=== PATIENT | male | born 1995 | race Caucasian/White ===

== ENCOUNTER 2024-11-03 16:43 | Emergency (ER) | payer BC, SELFPAY ==
[2024-11-03 16:52] VITALS: BP 119/85; PULSE 87; TEMP 36.8; O2SAT 100; BMI 22.5
--- NOTE | 2024-11-03 17:11 | XR_ITS ---
[facility] [id number] Patient Name: JAEL URIBE MRN: [id number] date: 1995 Sex: M Assigned Patient Location: ER Current Patient Location: Accession/Order Number: [id number] Exam Date: 11/03/2024 17:35 Report Date: 11/03/2024 18:49 At the request of: PATRICIA ROSARIO Procedure: XR abdomen min 2V EXAM: XR abdomen min 2V HISTORY: constipation COMPARISON: None. TECHNIQUE: 2 views of the abdomen FINDINGS: Nonobstructive bowel pattern is seen. No air-filled distended loops of bowel is seen. Large volume of stool is seen throughout colon. No obvious pathologic calcification is seen. XR/XR abdomen min 2V IMPRESSION: Large volume of stool seen in the colon. Electronically authenticated by: FUENTES SHIPMAN Date: 11/03/2024 18:49
--- NOTE | 2024-11-03 17:11 | ED.ABDPAIN1 ---
HPI - Abdominal Pain General Chief Complaint: Abdominal Pain Stated Complaint: CONSTIPATION, RECENTLY [place] OF COUNTRY Time Seen by Provider: 11/03/24 17:06 Mode of arrival: walk-in History of Present Illness HPI narrative: 28 year old male presents to the ED for constipation. Onset was over one week ago. States he had diarrhea at the end of September, [place]. He took Pepto bismol for the issue. States he returned home 10/20/24. He has had one normal BM since returning home. Denies fever, chills, N/V. Reports abd pressure today. He has taken 3 doses of miralax and increased the fluid, fruit in his diet without relief. Related Data Allergies Allergy/AdvReac Type Severity Reaction Status Date / Time Sulfa (Sulfonamide AdvReac Severe Unknown Verified 11/03/24 16:52 Antibiotics) Review of Systems ROS Constitutional Denies: fever or chills Ears, nose, mouth, and throat Denies: throat pain or neck pain Cardiovascular Denies: chest pain Respiratory Denies: shortness of breath Gastrointestinal Reports: abdominal pain and constipation; Denies: nausea, vomiting or diarrhea Genitourinary Denies: painful urination, urinary frequency or blood in urine Musculoskeletal Denies: back pain PFSH PFSH Social History Little interest or pleasure in doing things: not at all Feeling down, depressed, or hopeless: not at all Exam Constitutional Vital Signs, click to edit/add: Last Vital Signs Temp 98.2 F 11/03/24 16:52 Pulse 87 11/03/24 16:52 Resp 18 11/03/24 16:52 BP 119/85 11/03/24 16:52 Pulse Ox 100 11/03/24 16:52 Common normals: no apparent distress and oriented x3 General appearance: cooperative Eye Common normals: conjunctivae normal and no scleral icterus Neck & C-Spine Common normals: supple Respiratory Common normals: normal respiratory effort Effort & inspection: able to speak in complete sentences and symmetric chest movement Cardio Common normals: regular rate and regular rhythm GI Common normals: Normal to inspection, nondistended, normoactive bowel sounds present, soft to palpation and non-tender Neuro Common normals: oriented x3 and moves all extremities Sensorium/orientation: awake and alert Speech: speech normal Gait (neuro): normal gait Course Vital Signs Vital signs: Vital Signs Temperature 98.2 F 11/03/24 16:52 Pulse Rate 87 11/03/24 16:52 Respiratory Rate 18 11/03/24 16:52 Blood Pressure 119/85 11/03/24 16:52 Pulse Oximetry 100 11/03/24 16:52 Temperature 98.2 F 11/03/24 16:52 Pulse Rate 87 11/03/24 16:52 Respiratory Rate 18 11/03/24 16:52 Blood Pressure 119/85 11/03/24 16:52 Pulse Oximetry 100 11/03/24 16:52 MDM - Abdominal Pain MDM Narrative Medical decision making narrative: X-ray was reviewed by the attending physician and showed constipation with no evidence of obstruction. Findings were discussed with the patient. He was sent home with a bottle of magnesium citrate. Follow up with pcp for a recheck, further evaluation and treatment. Differential Diagnosis Differential diagnosis: Likely abdominal pain, constipation and small bowel obstruction Medical Records Attestation: I reviewed the patient's medical records. Imaging Data XR: Attestation: I have reviewed the pertinent imaging results. Discharge Plan Discharge Chief Complaint: Abdominal Pain Clinical Impression: Constipation Patient Disposition: Home, Self-Care Time of Disposition Decision: 17:52 Condition: Good Mode of Transportation: Private Vehicle Print Language: Guatemalan Instructions: Constipation (ED) Referrals: Felix Morejon MD [Primary Care Provider] - 1 week
[2024-11-03] MEDS: MAGNESIUM CITRATE 296 ML SOLUTION PO (17:58)
== END 2024-11-03 18:03 | disposition home or self-care (01) ==
PROVIDERS: Emergency Provider Emergency Medicine; PCP Family Medicine
DX: K59.00 Constipation, unspecified (principal)
CPT/HCPCS: 74019; 99283